=== PATIENT | male | born 1995 | race Caucasian/White ===

== ENCOUNTER 2022-08-29 17:08 | Emergency (ER) | payer OTHER ==
[~2022-08-29] VITALS: Ht 149.9 cm; Wt 54.4 kg
[~2022-08-29 17:08] MED LIST: ALBU.083IS IH; ALBU90OI INH; AMOX500 PO; AMOX50SU PO; AZIT200SU PO; CARB100CH; CARB100CH PO; CODACEE120 PO; IBUP400 PO; ONDA4ODT MM; SULF10OPSA OU
[2022-08-29] MEDS ORDERED: PERM5TC TOP (17:25)
[2022-08-29] MEDS ORDERED: Prednisone20 MG PO (17:25)
== END 2022-08-29 17:14 | disposition home or self-care (01) ==
LOC: ER 17:08
DX: B86 Scabies (principal)
CPT/HCPCS: 99282

== ENCOUNTER 2022-11-22 23:51 | Emergency (ER) | payer OTHER ==
[~2022-11-22] VITALS: Ht 152.4 cm; Wt 54.4 kg
[~2022-11-22 23:51] MED LIST changes: +PERM5TC TOP; +Prednisone20 MG PO
[2022-11-23 00:06] VITALS: BP 140/98
== END 2022-11-23 00:11 | disposition home or self-care (01) ==
LOC: ER 23:51
DX: L25.9 Unspecified contact dermatitis, unspecified cause (principal); G40.909 Epilepsy, unspecified, not intractable, without status epilepticus
CPT/HCPCS: 99282